=== PATIENT | female | born 1950 | race Caucasian/White ===

== ENCOUNTER → 2017-01-10 | Outpatient (CLI) | payer MEDICARE, OTHER | END | disposition home or self-care (01) | LOC: YCFC.O 08:51 | PROVIDERS: ATTEND Nurse Practitioner Family | DX: I63.9 Cerebral infarction, unspecified (principal); E61.1 Iron deficiency; I10 Essential (primary) hypertension; E78.5 Hyperlipidemia, unspecified; E11.9 Type 2 diabetes mellitus without complications ==

== ENCOUNTER → 2017-02-27 | Outpatient (CLI) | payer OTHER ==
--- NOTE | 2017-02-27 16:29 | RAD ---
History: Cough, COPD. Chest x-ray: Single view is compared with 02/2016 study. Cardiomediastinal contour is within normal limits with ectatic thoracic aorta. Patchy left lower lung atelectasis or scarring is grossly stable. No definite airspace disease or pleural effusion. Mild diffuse osteopenia. IMPRESSION: Stable study since 02/2016. Electronically signed by: Sandhya Dailey MD 02/27/2017 4:28 PM CDT
== END ==
LOC: LAB.O 09:20
PROVIDERS: ATTEND Nurse Practitioner Family
DX: R05 Cough (principal); R09.89 Other specified symptoms and signs involving the circulatory and respiratory systems

== ENCOUNTER 2017-12-05 09:47 | Emergency (ER) | payer OTHER ==
[2017-12-05] MEDS ORDERED: IPRATROPIUM/ALBUTEROL 3 ML VIAL NEB ONE ×2 (09:56→10:17)
[2017-12-05] MEDS ORDERED: methylPREDNISolone SODIUM SUC 125 MG/2 ML VIAL IV ONE (10:38)
--- NOTE | 2017-12-05 10:39 | ED.PDOC ---
History of Present Illness - General Chief Complaint: Respiratory Problem Stated Complaint: Dyspnea Time Seen by Provider: 12/05/17 10:07 Source: patient, family Exam Limitations: no limitations Additional Information: Anila Scales 67 y/o female with history of COPD was sent by her primary Md to [facility] with sob,and low oxygen saturation since yesterday.Denies fever ,chills ,chest pain. - History of Present Illness Timing/Duration: yesterday Cough Quality/Degree: moderate, dry cough Possible Cause: occasional episodes Improving Factors: nothing Worsening Factors: nothing Associated Symptoms: sinus infection, other - see hpi Allergies/Adverse Reactions: Allergies Aspirin [From ASA Compound] Allergy (Verified 03/04/16 22:32) Home Medications: Ambulatory Orders Clopidogrel Bisulfate [Plavix] 75 mg PO QD 03/04/16 Human Insulin Aspart [Novolog] 0 unit SUBCU 03/04/16 Insulin Detemir [Levemir Pen] 24 unit SUBCU DAILY 03/04/16 Lisinopril 10 mg PO DAILY 03/04/16 Pravastatin Sodium [Pravachol] 40 mg PO BEDTIME 03/04/16 Verapamil HCl 80 mg PO BEDTIME 03/04/16 Albuterol Sulfate [Proair Hfa] 2 puff INH Q6H PRN 03/05/16 Budesonide-Formoterol Fumarate [Symbicort 160-4.5 Mcg/Act] 2 aer IN BID Review of Systems - Review of Systems Constitutional: States: no symptoms reported EENTM: States: no symptoms reported Respiratory: States: see HPI Cardiology: States: no symptoms reported Gastrointestinal/Abdominal: States: no symptoms reported Genitourinary: States: no symptoms reported Musculoskeletal: States: no symptoms reported Skin: States: no symptoms reported All other Systems: Reviewed and Negative, No Change from Baseline Past Medical History (General) - Patient Medical History Hx Seizures: No Hx Stroke: Yes Hx Dementia: No Hx Asthma: Yes Hx of COPD: Yes Hx Cardiac Disorders: Yes Hx Congestive Heart Failure: Yes Hx Pacemaker: No Hx Hypertension: No Hx Thyroid Disease: No Hx Diabetes: Yes Hx Gastroesophageal Reflux: Yes Hx Renal Disease: No Hx Cancer: No Hx of HIV: No Hx Hepatitis C: No Hx MRSA: No Surgical History: no surgical history - Vaccination History Hx Tetanus, Diphtheria Vaccination: No Hx Influenza Vaccination: No Hx Pneumococcal Vaccination: No - Social History Hx Tobacco Use: Yes Hx Chewing Tobacco Use: No Hx Alcohol Use: No Hx Substance Use: No Hx Substance Use Treatment: No Hx Depression: No Hx Physical Abuse: No Hx Emotional Abuse: No Hx Suspected Abuse: No - Activities of Daily Living Patient Lives Alone: No - family Grooming Ability: Independent Eating (Feeding) Ability: Independent Toileting Ability: Independent - Female History Patient : No Family Medical History - Family History Mother Living Status: Hx Family Hypertension: Yes Hx Family Stroke: Yes Hx Family Diabetes: Yes Brother Living Status: Still Living Hx Family Diabetes: Yes Father Living Status: Hx Family Hypertension: Yes Hx Family Cancer: Yes Physical Exam - Physical Exam General Appearance: Alert, Anxious, No apparent distress Eye Exam: bilateral normal ENT Exam: normal ENT inspection, hearing grossly normal, pharynx normal Neck: non-tender, supple, trachea midline Respiratory: chest non-tender, no respiratory distress, no accessory muscle use , rhonchi, other - [id number] Cardiovascular/Chest: normal peripheral pulses, regular rate, rhythm, no murmur Gastrointestinal/Abdominal: normal bowel sounds, non tender, soft, no organomegaly Extremity: pedal edema - right leg>left Neurologic: alert, oriented x 3 Skin Exam: normal color, warm/dry Progress - Progress Progress: 12/05/17 10:37 Last Vital Signs Temp 97.1 F L 12/05/17 10:02 Pulse 94 H 12/05/17 10:15 Resp 20 12/05/17 10:15 BP 139/70 12/05/17 10:02 Pulse Ox 98 12/05/17 10:15 - Results/Orders Results/Orders: Laboratory Tests 12/05/17 12/05/17 12/05/17 10:07 10:47 10:47 WBC 19.5 H RBC 5.34 Hgb 16.2 H Hct 49.0 H MCV 91.7 MCH 30.3 MCHC 33.1 RDW 13.4 Plt Count 330 MPV 8.7 Absolute Neuts (auto) 15.30 H Absolute Lymphs (auto) 2.70 Absolute Monos (auto) 1.20 H Absolute Eos (auto) 0.20 Absolute Basos (auto) 0.10 Neutrophils % 78.8 H Lymphocytes % 13.6 L Monocytes % 6.0 Eosinophils % 1.2 Basophils % 0.4 D-Dimer, Quantitative 1913 H* Sodium 134 L Potassium 4.2 Chloride 97 L Carbon Dioxide 21 Anion Gap 20.2 H BUN 11 Creatinine 1.03 BUN/Creatinine Ratio 10.7 Random Glucose 513 H* Serum Osmolality 290.7 Calcium 9.5 Total Bilirubin 1.0 AST 22 ALT 21 Alkaline Phosphatase 107 Troponin I B-Natriuretic Peptide Serum Total Protein 8.9 H Albumin 3.8 Globulin 5.1 H Albumin/Globulin Ratio 0.7 L Urine Color Urine Appearance Urine pH Ur Specific [place] Urine Protein Urine Glucose (UA) Urine Ketones Urine Blood Urine Nitrite Urine Bilirubin Urine Urobilinogen Ur Leukocyte Esterase Urine RBC Urine WBC Ur Epithelial Cells Urine Bacteria Urine Yeast 12/05/17 12/05/17 12/05/17 10:47 10:47 12:40 WBC RBC Hgb Hct MCV MCH MCHC RDW Plt Count MPV Absolute Neuts (auto) Absolute Lymphs (auto) Absolute Monos (auto) Absolute Eos (auto) Absolute Basos (auto) Neutrophils % Lymphocytes % Monocytes % Eosinophils % Basophils % D-Dimer, Quantitative Sodium Potassium Chloride Carbon Dioxide Anion Gap BUN Creatinine BUN/Creatinine Ratio Random Glucose Serum Osmolality Calcium Total Bilirubin AST ALT Alkaline Phosphatase Troponin I < 0.02 B-Natriuretic Peptide 63.6 Serum Total Protein Albumin Globulin Albumin/Globulin Ratio Urine Color Yellow Urine Appearance Sl cloudy Urine pH 5.0 Ur Specific [place] 1.010 Urine Protein Negative Urine Glucose (UA) 500 H Urine Ketones Negative Urine Blood Trace-intact H Urine Nitrite Negative Urine Bilirubin Negative Urine Urobilinogen 0.2 Ur Leukocyte Esterase Small H Urine RBC 5-10 H Urine WBC >100 H Ur Epithelial Cells 3-5 Urine Bacteria 2+ H Urine Yeast Rare Venous Ultrasound-righ leg dvt - EKG/XRAY/CT EKG: Sinus, Tachy, RBBB Comments: Hear [id number];LAFB XRAY: chest - no acute abnormality CT Ordered: Yes - bilateral pulmonary embolus Departure - Departure Clinical Impression: Acute pulmonary embolus Qualifiers: Pulmonary embolism type: saddle Acute cor pulmonale presence: without acute cor pulmonale Qualified Code(s): I26.92 - Saddle embolus of pulmonary artery without acute cor pulmonale Dvt femoral (deep venous thrombosis) Qualifiers: Chronicity: acute Laterality: right Qualified Code(s): I82.411 - Acute embolism and thrombosis of right femoral vein Dyspnea Qualifiers: Dyspnea type: shortness of breath Qualified Code(s): R06.02 - Shortness of breath Diabetes Qualifiers: Diabetes mellitus type: type 2 Diabetes mellitus complication status: with unspecified complications Diabetes mellitus halfway insulin use: with halfway use Qualified Code(s): E11.8 - Type 2 diabetes mellitus with unspecified complications COPD (chronic obstructive pulmonary disease) Qualifiers: COPD type: unspecified COPD Qualified Code(s): J44.9 - Chronic obstructive pulmonary disease, unspecified Urinary tract infection Qualifiers: Urinary tract infection type: site unspecified Hematuria presence: without hematuria Qualified Code(s): N39.0 - Urinary tract infection, site not specified Time of Disposition: 13:50 Disposition: Transfer to Hospital Condition: Fair Departure Forms: ED Discharge - Pt. Copy, Patient Portal Self Enrollment Referrals: Ashley Mulligan, BAFFLE INSTALLER [Primary Care Provider] - 1-2 Weeks Home Medications: Ambulatory Orders Clopidogrel Bisulfate [Plavix] 75 mg PO QD 03/04/16 Human Insulin Aspart [Novolog] 0 unit SUBCU 03/04/16 Insulin Detemir [Levemir Pen] 24 unit SUBCU DAILY 03/04/16 Lisinopril 10 mg PO DAILY 03/04/16 Pravastatin Sodium [Pravachol] 40 mg PO BEDTIME 03/04/16 Verapamil HCl 80 mg PO BEDTIME 03/04/16 Albuterol Sulfate [Proair Hfa] 2 puff INH Q6H PRN 03/05/16 Budesonide-Formoterol Fumarate [Symbicort 160-4.5 Mcg/Act] 2 aer IN BID Transfer to Outside Facility - Transfer Information Accepting Provider:: [facility] Reason for Transfer: ICU - D/W Dr. Junior -Hospitalist
--- NOTE | 2017-12-05 10:53 | RAD ---
EXAM DESCRIPTION: Chest,2 Views CLINICAL HISTORY: shortness of breath COMPARISON: February 27, 2017 TECHNIQUE: PA/lateral FINDINGS: The lungs are well expanded and clear. No infiltrates or effusions or masses are noted. Slightly coarse basilar markings are little changed from prior study without definite infiltrate. Upper normal heart size with normal vascularity. The kena and mediastinum demonstrate normal contours. The bony spine and chest wall is normal for age in appearance. IMPRESSION: No acute cardiopulmonary disease. Electronically signed by: Jhonatan Benson MD 12/05/2017 10:52 AM [facility]
[2017-12-05] MEDS ORDERED: BUMETANIDE 0.25 MG/ML VIAL IV ONE (10:57)
[2017-12-05] MEDS ORDERED: INSULIN, REG.(HUMAN) 100 U/ML VIAL SUBCU ONE (11:53)
--- NOTE | 2017-12-05 12:25 | US ---
EXAM DESCRIPTION: Venous,Lower Extremity RT: ULTRASOUND. CLINICAL HISTORY: pain /swelling right leg COMPARISON: CTA chest and chest radiograph on this visit. TECHNIQUE: Two -dimensional and doppler sonographic evaluation of the deep venous system of the right lower extremity. FINDINGS: Doppler evaluation shows echogenic thrombus in the right common femoral vein, femoral vein, popliteal vein. Echogenic thrombus partially occluding the right peroneal vein. There is diminished or absent color flow in these veins and diminished or absent venous waveforms. The veins are not compressible with the transducer. Doppler evaluation shows normal color flow and normal phasicity and augmentation of the right posterior tibial vein. There is also normal occlusion with transducer pressure. Two-dimensional survey showed no echogenic thrombus within the vein. IMPRESSION: 1. Duplex ultrasound evaluation of the right lower extremity deep venous system showing extensive thrombosis from the right common femoral vein into the right peroneal vein. 2. No thrombus in the right posterior tibial vein. 3. The correctional captain notified the emergency medicine referring physician of these findings upon completion of the examination at approximately 1150 hours on December 05, 2017. Electronically signed by: Wilber Ruiz MD 12/05/2017 12:24 PM PROGRAM PLANNER
--- NOTE | 2017-12-05 13:05 | CT ---
EXAM DESCRIPTION: CTA Chest: Computed tomography. CLINICAL HISTORY: elevated d dimer/low sao2 COMPARISON: EXAM DESCRIPTION: CTA Chest: Computed Tomography. CLINICAL HISTORY: elevated d dimer/low sao2 COMPARISON: Duplex ultrasound evaluation of the deep venous system of the right lower extremity. TECHNIQUE: Spiral-axial scans at 0.5 mm intervals through the pulmonary arteries and chest after bolus infusion of IV contrast. Coronal and sagittal 2.0 Mm reconstructions. 5.0 mm PE oblique 3-D reformatted images. Volume rendering imaging craniocaudal and transverse axes. No adverse reactions. This exam was performed according to our departmental CT dose-optimization program which includes automated exposure control, adjustment of the mA and/or kV according to patient size and/or use of iterative reconstruction technique; to reduce radiation dose to as low as reasonably achievable (ALARA). FINDINGS: A large saddle embolus is visualized in the right pulmonary artery which extends into the right upper lobe pulmonary artery and some segmental branches. Also extending into the right middle lobe pulmonary artery and right lower lobe pulmonary artery and segmental arteries. Thrombus also located on the bifurcation of the main pulmonary artery. Saddle embolus involving the left upper lobe and extending into the left lower lobe pulmonary artery branch. No filling defects in the lingular branches. Although the left lower lobe subsegmental branches are normally opacified. Bilateral posterior dependent atelectasis in the lower lobes. No pulmonary edema. Focal lung nodule versus pleural thickening mean diameter 10 mm in the anterior cardiophrenic recess on the left (series 2, image 49). Second soft tissue nodule in the inferior lingula mean diameter 7.5 mm mostly smooth borders (image 59). 2.5 mm soft tissue subpleural nodule lateral right middle lobe at the same level. Scarring in the inferior lingula. No pleural effusion or pneumothorax bilaterally. Thoracic aortic calcifications also involving the proximal brachiocephalic vessels. Small nodes in the mediastinum but no large soft tissue masses. No axillary adenopathy bilaterally. Minimal enhancement of the thyroid gland. Minimal spondylosis several levels of the thoracic spine. Fatty infiltration of the liver. Normal enhancement and size of the adrenal glands and spleen. Moderate size gastric hiatal hernia. Atherosclerotic calcification and intimal thickening of the abdominal aorta. Also extensive calcification of the ostia of the celiac axis, left renal artery and SMA. No subdiaphragmatic free fluid in the included peritoneal space. IMPRESSION: 1. Extensive bilateral embolic clots bilateral pulmonary arteries and most of the lobe bar branches. Some of the emboli extend into segmental branches bilaterally. No pulmonary edema. 2. Bilateral soft tissue nodules in the lung parenchyma. Largest has a mean diameter of 10 mm. According to [facility] Best Practice guidelines, utilizing 2017 Fleischner Society multiple pulmonary nodule recommendations, consider follow-up chest CT scan in 3-6 month interval. Please see below.* 3. Fatty infiltration of the liver. Significant atherosclerotic calcification of the proximal abdominal aorta and ostia of major vessels originating from the aorta. Moderate size gastric hernia. Consider CTA abdominal pelvis and lower extremities if patient symptomatic for abdominal pelvic ischemia or PVD. *2017 Fleischner Society Recommendations for Multiple Solid Lung Nodules Follow-Up base on size (average of long- and short-axis diameters). Use most suspicious nodule for followup. Nodule Size <6 mm Low-Risk Patient: No routine follow-up Nodule Size <6 mm High-Risk Patient: Optional CT at 12 months Nodule Size 6-8 mm Low-Risk Patient: CT at 3-[address] at 18-24 months Nodule Size 6-8 mm High-Risk Patient: CT at 3-6 months then at 18-24 months Nodule Size (mm) >8 Low-Risk Patient: CT at 3-6 months, then consider CT at 18-24 months Nodule Size (mm) >8 High-Risk Patient: CT at 3-6 months, then at 18-24 months CRITICAL COMMUNICATION: The critical value was discussed directly by phone with Dr. Josh Stevenson, at approximately 1235 hours, on December 05, 2017. Electronically signed by: Wilber Ruiz MD 12/05/2017 1:04 PM [facility]
[2017-12-05] MEDS ORDERED: ENOXAPARIN SODIUM 100 MG/ML SYG SUBCU ONE (13:09)
[2017-12-05] MEDS ORDERED: MEROPENEM 500 MG in SODIUM CHL 0.9% 50ML MIN-BAG+ 50 ML IVPB ONE (13:37)
[2017-12-05] MEDS ORDERED: MEROPENEM 500 MG VIAL IVPB ONE (15:28)
[2017-12-05] MEDS ORDERED: SODIUM CHL 0.9% 50ML MIN-BAG+ 50 ML IVPB ONE (15:29)
[2017-12-05 15:45] VITALS: BP 132/85; TEMP 97.5; O2SAT 97
== END 2017-12-05 15:45 | disposition short-term general hospital (02) ==
LOC: ER 09:47
DX: I26.92 Saddle embolus of pulmonary artery without acute cor pulmonale (principal); I82.411 Acute embolism and thrombosis of right femoral vein; J44.9 Chronic obstructive pulmonary disease, unspecified; N39.0 Urinary tract infection, site not specified; E11.8 Type 2 diabetes mellitus with unspecified complications; I45.10 Unspecified right bundle-branch block; I50.9 Heart failure, unspecified; K21.9 Gastro-esophageal reflux disease without esophagitis; Z79.4 Long term (current) use of insulin; Z79.02 Long term (current) use of antithrombotics/antiplatelets; Z88.6 Allergy status to analgesic agent
CPT/HCPCS: 36415; 71046; 71275; 80053; 81001; 83880; 84484; 85025; 85379; 87070; 87086; 93005; 93971; 94640; J1650; J2185; J2930; J3490; J7050; J7620

== ENCOUNTER → 2019-01-25 | Outpatient (CLI) | payer OTHER | LOC: YCFC.O 11:51 | PROVIDERS: ATTEND Nurse Practitioner Family | DX: I10 Essential (primary) hypertension (principal); E78.2 Mixed hyperlipidemia; E11.65 Type 2 diabetes mellitus with hyperglycemia ==

== ENCOUNTER → 2019-04-30 | Outpatient (CLI) | payer OTHER | LOC: YCHH 12:57 | PROVIDERS: ATTEND Family Medicine | DX: E11.9 Type 2 diabetes mellitus without complications (principal) ==

== ENCOUNTER 2020-01-13 22:28 | Inpatient (IN) | payer MEDICARE ==
[2020-01-13] MEDS ORDERED: methylPREDNISolone SODIUM SUC 125 MG/2 ML VIAL IV ONE (22:32)
[2020-01-13] MEDS ORDERED: IPRATROPIUM/ALBUTEROL 3 ML VIAL NEB ONE (22:33)
[2020-01-13] MEDS ORDERED: SODIUM CHLORIDE 0.9% NEB 3 ML VIAL ONE (22:45)
--- NOTE | 2020-01-13 23:18 | RAD ---
EXAM DESCRIPTION: XR Chest,1 View CLINICAL HISTORY: cough, shortness of breath TECHNIQUE: Single frontal view of the chest is submitted. COMPARISON: 12/05/2017 FINDINGS: Heart: The cardiothoracic silhouette is within normal limits. Lungs: No focal consolidation. Mediastinum: Thoracic aortic atherosclerosis. Pleura: No appreciable effusion. No pneumothorax. Bones: Multilevel spondylosis. No acute fracture. Upper abdomen: Unremarkable IMPRESSION: No acute disease. Electronically signed by: Paulie Winn MD 01/13/2020 11:16 PM [facility]
[2020-01-13] MEDS ORDERED: AZITHROMYCIN 250 MG TAB PO ONE (23:39)
[2020-01-13] MEDS ORDERED: cefTRIAXone SODIUM 1 GM in SODIUM CHL 0.9% 50ML MIN-BAG+ 50 ML IVPB ONE (23:39)
[2020-01-13] MEDS ORDERED: OSELTAMIVIR 75 MG CAP PO ONE (23:39)
--- NOTE | 2020-01-13 23:42 | ED.PDOC ---
History of Present Illness - General Chief Complaint: Respiratory Problem Stated Complaint: increased shortness of breath x1 week Time Seen by Provider: 01/13/20 22:31 Additional Information: The patient is a 69 year old with past history of COPD who presents with respiratory distress. History is obtained from the patient's family as she is unable to provide to to distress. They report one week of worsening URI symptoms associated with cough and worsening wheezing. She has been using her nebulizer at home with minimal relief. No recent travel or known sick contacts. No other complaints at this time. - History of Present Illness Allergies/Adverse Reactions: Allergies Aspirin [From ASA Compound] Allergy (Verified 01/13/20 22:33) Home Medications: Ambulatory Orders Clopidogrel Bisulfate [Plavix] 75 mg PO QD 03/04/16 Human Insulin Aspart [Novolog] 0 unit SUBCU AC 03/04/16 Insulin Detemir [Levemir Pen] 55 unit SUBCU DAILY 03/04/16 Lisinopril 10 mg PO DAILY 03/04/16 Albuterol Sulfate [Proair Hfa] 2 puff INH Q6H PRN 03/05/16 Budesonide-Formoterol Fumarate [Symbicort 160-4.5 Mcg/Act] 2 aer IN BID 03/05/16 Review of Systems - Review of Systems Unable to Obtain Due To: clinical condition - respiratory distress Past Medical History (General) - Patient Medical History Hx Seizures: No Hx Stroke: Yes Hx Dementia: No Hx Asthma: Yes Hx of COPD: Yes Hx Cardiac Disorders: Yes Hx Congestive Heart Failure: Yes Hx Pacemaker: No Hx Hypertension: No Hx Thyroid Disease: No Hx Diabetes: Yes Hx Gastroesophageal Reflux: Yes Hx Renal Disease: No Hx Cancer: No Hx of HIV: No Hx Hepatitis C: No Hx MRSA: No Surgical History: no surgical history - Vaccination History Hx Tetanus, Diphtheria Vaccination: No Hx Influenza Vaccination: No Hx Pneumococcal Vaccination: No - Social History Hx Tobacco Use: Yes Hx Chewing Tobacco Use: No Hx Alcohol Use: No Hx Substance Use: No Hx Substance Use Treatment: No Hx Depression: No Hx Physical Abuse: No Hx Emotional Abuse: No Hx Suspected Abuse: No - Female History Patient : No Family Medical History - Family History Mother Living Status: Hx Family Hypertension: Yes Hx Family Stroke: Yes Hx Family Diabetes: Yes Brother Living Status: Still Living Hx Family Diabetes: Yes Father Living Status: Hx Family Hypertension: Yes Hx Family Cancer: Yes Physical Exam - Physical Exam General Appearance: Anxious, Obvious distress Eyes, Ears, Nose, Throat Exam: normal ENT inspection Neck: non-tender, full range of motion Respiratory: respiratory distress, decreased breath sounds, accessory muscle use, wheezing - expiratory Cardiovascular/Chest: regular rate, rhythm, tachycardia Gastrointestinal/Abdominal: non tender, soft Rectal Exam: deferred Extremity: normal range of motion, non-tender, normal inspection, no pedal edema Neurologic: no motor/sensory deficits, alert Skin Exam: normal color, warm/dry Progress - Progress Progress: 01/13/20 23:42 Patient presents with respiratory distress, wheezing. Workup as below. Started on steroids, nebs, nasal canula for COPD with marked improvement. There is really minimal CO2 retention on ABG. She tested positive for flu, started on tamiflu. She was given rocephin/azithromycin for COPD exacerbation and possible underlying infection. After nebs she remained moderately tachypneic with wheezing, will admit for additional treatments. Discussed with LENS GENERATING MACHINE TENDER Danielle Sheffield, will admit for COPD exacerbation, flu. Patient and family are agreeable to this plan of care. - Results/Orders Results/Orders: 01/13/20 22:34 ABG [Arterial Blood Gas] Stat 01/13/20 22:45 EKG STAT 01/13/20 23:39 cefTRIAXone SODIUM [Rocephin] 1 gm Sodium Chl 0.9% 50Ml Min-Bag+ [NS 50ml MINI-BAG+] 50 ml IVPB ONCE Laboratory Results - last 24 hr 01/13/20 01/13/20 01/13/20 22:45 22:45 22:45 WBC 9.3 RBC 5.06 Hgb 15.0 Hct 45.3 MCV 89.6 MCH 29.6 MCHC 33.0 RDW 14.5 Plt Count 295 MPV 8.4 Absolute Neuts (auto) Not Reportable Absolute Lymphs (auto) Not Reportable Absolute Monos (auto) Not Reportable Absolute Eos (auto) Not Reportable Neutrophils % Not Reportable Neutrophils % (Manual) 68.0 Lymphocytes % Not Reportable Lymphocytes % (Manual) 12.0 Monocytes % Not Reportable Monocytes % (Manual) 13.0 Eosinophils % Not Reportable Basophils % Not Reportable Band Neutrophils 3.0 H Metamyelocytes 3.0 H Myelocytes 1.0 H Platelet Estimate Normal Normal RBC Morphology Normal rbc morph Sodium 137 Potassium 4.4 Chloride 105 Carbon Dioxide 24 Anion Gap 12.4 BUN 18 Creatinine 1.14 BUN/Creatinine Ratio 15.8 Random Glucose 227 H Serum Osmolality 282.9 Lactic Acid Calcium 9.3 Troponin I 0.03 B-Natriuretic Peptide 119.0 H 01/13/20 22:45 WBC RBC Hgb Hct MCV MCH MCHC RDW Plt Count MPV Absolute Neuts (auto) Absolute Lymphs (auto) Absolute Monos (auto) Absolute Eos (auto) Neutrophils % Neutrophils % (Manual) Lymphocytes % Lymphocytes % (Manual) Monocytes % Monocytes % (Manual) Eosinophils % Basophils % Band Neutrophils Metamyelocytes Myelocytes Platelet Estimate Normal RBC Morphology Sodium Potassium Chloride Carbon Dioxide Anion Gap BUN Creatinine BUN/Creatinine Ratio Random Glucose Serum Osmolality Lactic Acid 2.2 Calcium Troponin I B-Natriuretic Peptide - EKG/XRAY/CT Comments: 2256 sinus tachycardia, right BBB, no STEMI Xray Comments: COPD, no infiltrate Departure - Departure Clinical Impression: COPD exacerbation, Influenza A Time of Disposition: 23:45 Disposition: Admit Patient Condition: Good Departure Forms: ED Discharge - Pt. Copy, Patient Portal Self Enrollment Referrals: Benita Aceves, DOMONIQUE [Primary Care Provider] - 1-2 Weeks Home Medications: Ambulatory Orders Clopidogrel Bisulfate [Plavix] 75 mg PO QD 03/04/16 Human Insulin Aspart [Novolog] 0 unit SUBCU AC 03/04/16 Insulin Detemir [Levemir Pen] 55 unit SUBCU DAILY 03/04/16 Lisinopril 10 mg PO DAILY 03/04/16 Albuterol Sulfate [Proair Hfa] 2 puff INH Q6H PRN 03/05/16 Budesonide-Formoterol Fumarate [Symbicort 160-4.5 Mcg/Act] 2 aer IN BID 03/05/16 Decision To Admit - Decistion To Admit Decision to Admit Reason: Admit from ER - Copd exacerbation, flu Decision to Admit Date: 01/13/20 Decision to Admit Time: 23:46
[2020-01-13] MEDS ORDERED: SODIUM CHL 0.9% 50ML MIN-BAG+ 50 ML IVPB ONE (23:58)
[2020-01-13] MEDS ORDERED: cefTRIAXone SODIUM 1 GM VIAL ONE (23:58)
[2020-01-14] MEDS ORDERED: SODIUM CHLORIDE 0.9% (FLUSH) 10 ML SYG IV PRN (02:03)
[2020-01-14] MEDS ORDERED: ONDANSETRON INJ 4 MG/2 ML VIAL IV PRN (02:03)
[2020-01-14] MEDS: NYSTATIN POWDER 15GM BTTL TOP SCH ×5 (05:00→21:06)
[2020-01-14] MEDS: ALBUTEROL SULFATE 2.5 MG/3 ML VIAL NEB PRN (05:08)
[2020-01-14] MEDS: IV SET AND CAP CHANGE INJ INJ SCH (05:12)
[2020-01-14] MEDS ORDERED: PANTOPRAZOLE SODIUM IV 40 MG VIAL IV SCH (06:30)
--- NOTE | 2020-01-14 06:59 | RAD ---
Chest one view on 01/14/2020 CLINICAL INDICATION: Pneumonia COMPARISON: 01/13/2020 FINDINGS: Vascular calcification is noted in the aorta. Heart is upper limits normal for size. Mild chronic interstitial changes are noted. Lungs are otherwise clear. Hilar and mediastinal contours are within normal limits. IMPRESSION: No acute disease. Electronically signed by: Jose Alberto Duque 01/14/2020 6:58 AM SUSTAIN[employer] PROJECT MANAGER
[2020-01-14] MEDS: IPRATROPIUM/ALBUTEROL 3 ML VIAL INH SCH ×4 (08:25→20:48)
[2020-01-14] MEDS ORDERED: LISINOPRIL 10 MG TAB ONE (08:40)
[2020-01-14] MEDS ORDERED: cefTRIAXone SODIUM 1 GM VIAL ONE (08:40)
[2020-01-14] MEDS ORDERED: SODIUM CHL 0.9% 50ML MIN-BAG+ 50 ML IVPB ONE (08:41)
[2020-01-14] MEDS: ATORVASTATIN 20 MG TAB PO SCH (08:43)
[2020-01-14] MEDS: SODIUM CHLORIDE 0.9% (FLUSH) 10 ML SYG IV SCH ×2 (08:44→21:07)
[2020-01-14] MEDS: cefTRIAXone SODIUM 1 GM in SODIUM CHL 0.9% 50ML MIN-BAG+ 50 ML IVPB SCH (08:44)
[2020-01-14] MEDS ORDERED: APIXABAN 5 MG TAB PO SCH (09:00)
[2020-01-14] MEDS ORDERED: NON-FORMULARY MEDICATION 1 EA MIS (Lisinopril [Lisinopril] 10 MG) PO SCH (09:00)
[2020-01-14] MEDS ORDERED: SODIUM CHLORIDE 0.9% 250ML 250 ML ONE (10:41)
[2020-01-14] MEDS ORDERED: AZITHROMYCIN IV 500 MG VIAL IVPB ONE (10:41)
[2020-01-14] MEDS: AZITHROMYCIN IV 500 MG in SODIUM CHLORIDE 0.9% 250ML 250 ML IVPB SCH (10:46)
--- NOTE | 2020-01-14 10:52 | HP ---
SUPERVISING PHYSICIAN: Gregory Corral MD CHIEF COMPLAINT: Worsening shortness of breath for a week. HISTORY OF PRESENT ILLNESS: Ms. Scales is a 69-year-old female patient who has a longstanding history of chronic obstructive pulmonary disease. She is a very poor historian, therefore, most of the record was obtained from family and past medical records. The family endorses that over the last week, she has been having worsening upper respiratory symptoms that she associates with a cough, worsening wheezing. She has been utilizing nebulizer at home, increasing without any significant relief. She denied any nausea, vomiting, chest pains. Initial vital signs in the Emergency Room did show that she was afebrile with temperature 96.6, pulse 101, blood pressure 159/80 with respirations of 28 to 30 utilizing accessory muscles with purse-lipped breathing and saturation 88% on room air. After breathing treatments, she was showing increasing saturations of 98% on nasal cannula at 2 liters with significant in work to breathe. Her initial laboratory studies show blood gas within normal limits with pH 7.4, bicarb 23, O2 100, CO2 32 on 3 liters nasal cannula. CBC showed white count 8,200 with a left shift. Chemistries showed initially normal electrolytes, potassium 4.4, calcium 9.3, troponin 0.03, BNP 119. Influenza A and B by PCR did show positive for influenza A, negative for B. Chest x-ray in the Emergency Room per radiologic interpretation showed initially no acute disease. Further review of her records shows that she does have a history of atrial fibrillation and looking at 12-lead that was done in the ER, she was in atrial fibrillation with a heart rate of 122 initially. She was started on IV fluids and antibiotics and now is going to be admitted for treatment of COPD exacerbation with concerns for developing complications from influenza A infection associated with diabetes mellitus, type 2. She is admitted in stable condition. PAST MEDICAL HISTORY: 1. Chronic atrial fibrillation on Eliquis, but not currently on any rate control medication. 2. Diabetes mellitus, type 2. 3. Chronic obstructive pulmonary disease with a component of asthma. 4. History of chronic lumbar disc disease. 5. History of chronic migraines, followed by Dr. Cleaning. PAST SURGICAL HISTORY: No surgeries listed. MEDICATIONS: 1. Symbicort 160-4.5 1 inhaled daily p.r.n. 2. Proventil nebulizers 2.5 mg q.4h. as needed. 3. Levemir 80 units subcutaneously daily. 4. Lisinopril 10 mg daily. 5. ProAir inhaler 2 puffs q.6h. as needed. ALLERGIES: ASPIRIN. FAMILY HISTORY: Noncontributory. SOCIAL HISTORY: The patient lives in [place] and is cared for by family including her son. She has a history of smoking 2 packs a day for greater than 30 years, but stopped in the mid-90s. The family endorses that she is not using alcohol or illicit drugs. REVIEW OF SYSTEMS: Unable to fully obtain due to the patient's condition and poor historian. PHYSICAL EXAMINATION: VITAL SIGNS: Temperature 96.6. Pulse 101 to 122 showing atrial fibrillation on the bedside monitor. Blood pressure 159/80. Respirations anywhere from 28 to 30 and utilizing purse-lipped breathing, accessory muscles and saturation 88% on room air, improving to 98% on nasal cannula at 2 liters after treatments. Admission weight 103 kg. GENERAL: The patient appears to be a little anxious. She is a little tearful, but at time of exam is in no acute obvious distress. HEENT: Tympanic membranes clear bilaterally. Oropharynx is pink, moist without any lesions. NECK: Supple, nontender with full range of motion. No jugular venous distention noted. RESPIRATORY: Lung sounds decreased throughout with some very faint expiratory wheezing. There was some accessory muscle use initially noted, but with breathing treatments, improved. CARDIOVASCULAR: Slightly irregular rate and rhythm showing atrial fibrillation on the bedside monitor with a rate of about 122. No murmurs, gallops, or rubs were audible at time of exam. ABDOMEN: Soft, nontender. Positive bowel sounds. EXTREMITIES: There is no cyanosis, clubbing or edema. NEUROLOGIC: The patient is alert to herself and family members. She was a little anxious. Facial features appeared to be symmetrical with no notable nystagmus. Extraocular movements are within normal limits. Cranial nerves II- XII are grossly intact as tested. SKIN: Warm, pink and dry. LABORATORY: White count 9,300, hemoglobin 15, hematocrit 45.3, platelet count 295,000. Differential did show a left shift with 3% bands. Blood gas analysis was within normal limits with pH 7.4, pO2 39, pCO2 100, bicarb 23.9, base excess -0.7 on 3 liters nasal cannula. Chemistries initially on admission did show electrolytes within normal limits with BUN 18, creatinine 1.14. Blood sugar was elevated at 227. Calcium 9.3. BNP was a little elevated at 119. Troponin normal at 0.03. Urinalysis pending. MICROBIOLOGY: Influenza by PCR for A and B was positive for influenza A, negative for B. RADIOLOGY: Chest x-ray initially in the Emergency Room per radiologic interpretation showed no acute disease. ASSESSMENT: 1. Exacerbation of chronic obstructive pulmonary disease secondary to influenza A. 2. Acute on chronic atrial fibrillation with rapid ventricular response. 3. Diabetes mellitus, type 2. PLAN: We will go ahead and start her on Tamiflu for the influenza A. Given that she has significant COPD, we will start her on azithromycin and Rocephin. The patient apparently is very incontinent and requested a catheter at least the first 24 hours to assess for better I&Os. We will await urinalysis. We will have her on aggressive bronchial hygiene with q.i.d. DuoNeb treatments. We will resume her home medications once those are updated and verified. She will be on sliding scale insulin per protocol. She will be on DVT prophylaxis per protocol with Eliquis. I would anticipate her length of stay to be two to three days. Until the patient can transition to outpatient management, we will continue to monitor and treat as needed. #[id number] MTDD
[2020-01-14] MEDS ORDERED: GLUCAGON INJ 1 MG VIAL SUBCU PRN (11:02)
[2020-01-14] MEDS ORDERED: DEXTROSE 10% 500ML IVPB PRN (11:02)
[2020-01-14] MEDS: INSULIN DETEMIR 100 UNITS/ML PEN SUBCU SCH (11:32)
[2020-01-14] MEDS: OSELTAMIVIR 75 MG CAP PO SCH ×2 (11:32→21:07)
[2020-01-14] MEDS: INSULIN LISPRO 100 UNITS/ML PEN SUBCU SCH ×3 (11:37→21:09)
[2020-01-14] MEDS: ACETAMINOPHEN 325 MG TAB PO PRN (17:09)
[2020-01-14] MEDS: APIXABAN 5 MG TAB PO SCH (21:06)
[2020-01-15] MEDS: PANTOPRAZOLE SODIUM TAB 40 MG PO SCH (05:51)
[2020-01-15] MEDS: IPRATROPIUM/ALBUTEROL 3 ML VIAL INH SCH ×4 (08:40→20:09)
[2020-01-15] MEDS ORDERED: SODIUM CHL 0.9% 50ML MIN-BAG+ 50 ML IVPB ONE (09:40)
[2020-01-15] MEDS ORDERED: cefTRIAXone SODIUM 1 GM VIAL ONE (09:40)
[2020-01-15] MEDS: APIXABAN 5 MG TAB PO SCH ×2 (09:59→20:11)
[2020-01-15] MEDS: ATORVASTATIN 20 MG TAB PO SCH (09:59)
[2020-01-15] MEDS: cefTRIAXone SODIUM 1 GM in SODIUM CHL 0.9% 50ML MIN-BAG+ 50 ML IVPB SCH (09:59)
[2020-01-15] MEDS: OSELTAMIVIR 75 MG CAP PO SCH ×2 (09:59→20:12)
[2020-01-15] MEDS: LISINOPRIL 10 MG TAB PO SCH (09:59)
[2020-01-15] MEDS: NYSTATIN POWDER 15GM BTTL TOP SCH ×4 (10:00→20:11)
[2020-01-15] MEDS: INSULIN DETEMIR 100 UNITS/ML PEN SUBCU SCH (10:00)
[2020-01-15] MEDS: INSULIN LISPRO 100 UNITS/ML PEN SUBCU SCH ×4 (10:01→21:45)
[2020-01-15] MEDS: SODIUM CHLORIDE 0.9% (FLUSH) 10 ML SYG IV SCH ×2 (10:01→20:11)
[2020-01-15] MEDS: ACETAMINOPHEN 325 MG TAB PO PRN (10:05)
[2020-01-15] MEDS ORDERED: SODIUM CHLORIDE 0.9% 250ML 250 ML ONE (11:12)
[2020-01-15] MEDS ORDERED: AZITHROMYCIN IV 500 MG VIAL IVPB ONE (11:12)
[2020-01-15] MEDS: AZITHROMYCIN IV 500 MG in SODIUM CHLORIDE 0.9% 250ML 250 ML IVPB SCH (11:15)
[2020-01-15] MEDS ORDERED: KETOROLAC TROMETHAMINE INJ 30 MG/ML VIAL IM ONE (13:27)
--- NOTE | 2020-01-15 16:14 | PN ---
SUPERVISING PHYSICIAN: Gregory Corral MD DATE: 01/15/20 SUBJECTIVE: The patient is resting comfortably. Still having some general malaise. She is also very tearful and anxious at times. I think this is more related to just not feeling well. She has no further complaints. She has actually been afebrile during admission. OBJECTIVE: VITAL SIGNS: Temperature 98.4, pulse 79, blood pressure 112/60 respirations 16, oxygen saturation 98% on 2 liter nasal cannula. I&Os show positive balance. Weight 103.3 kg. GENERAL: The patient is resting comfortably. She is a little bit emotional and tearful but she is alert and in no obvious distress. CHEST: Lung sounds are improved a little bit from yesterday, no obvious wheezing. HEART: Slightly irregular rate and rhythm without any appreciable murmurs, rubs, or gallops. ABDOMEN: Soft, nontender. Positive bowel sounds. EXTREMITIES: No cyanosis, clubbing or edema. NEUROLOGIC: Alert times three. LABORATORY: Chemistries show normal electrolytes with BUN of 26, creatinine 1.4, blood sugars range between 104 and 213. RADIOLOGY: No additional studies today. ASSESSMENT: 1. Exacerbation of chronic obstructive pulmonary disease secondary to influenza A. 2. Acute on chronic atrial fibrillation with rapid ventricular response. 3. Diabetes mellitus, type 2. PLAN: Will continue with current plan at this point with Tamiflu, aggressive pulmonary hygiene and treatment with antibiotics to include azithromycin and Rocephin. She does remain with the catheter in place, we are closely monitoring I&Os, anticipate discharge and will discontinue that in the morning. She is on Duoneb treatments q.i.d.. Resumed her home medications. She is on DVT prophylaxis with Eliquis. Until we can transition her to outpatient management, we will continue to monitor and treat as needed. #[id number] MTDD
[2020-01-16] MEDS: ALBUTEROL SULFATE 2.5 MG/3 ML VIAL NEB PRN ×2 (00:30→05:04)
[2020-01-16] MEDS: PANTOPRAZOLE SODIUM TAB 40 MG PO SCH (06:00)
[2020-01-16] MEDS ORDERED: SODIUM CHL 0.9% 50ML MIN-BAG+ 50 ML IVPB ONE (07:14)
[2020-01-16] MEDS ORDERED: cefTRIAXone SODIUM 1 GM VIAL ONE (07:15)
[2020-01-16] MEDS: INSULIN LISPRO 100 UNITS/ML PEN SUBCU SCH ×4 (07:19→21:19)
[2020-01-16] MEDS: IPRATROPIUM/ALBUTEROL 3 ML VIAL INH SCH ×4 (08:46→20:21)
[2020-01-16] MEDS: ATORVASTATIN 20 MG TAB PO SCH (08:47)
[2020-01-16] MEDS: LISINOPRIL 10 MG TAB PO SCH (08:47)
[2020-01-16] MEDS: OSELTAMIVIR 75 MG CAP PO SCH ×2 (08:47→20:26)
[2020-01-16] MEDS: cefTRIAXone SODIUM 1 GM in SODIUM CHL 0.9% 50ML MIN-BAG+ 50 ML IVPB SCH (08:47)
[2020-01-16] MEDS: SODIUM CHLORIDE 0.9% (FLUSH) 10 ML SYG IV SCH ×2 (08:47→20:25)
[2020-01-16] MEDS: NYSTATIN POWDER 15GM BTTL TOP SCH ×4 (08:47→20:26)
[2020-01-16] MEDS: APIXABAN 5 MG TAB PO SCH ×2 (08:47→20:26)
[2020-01-16] MEDS: INSULIN DETEMIR 100 UNITS/ML PEN SUBCU SCH (08:48)
[2020-01-16] MEDS ORDERED: AZITHROMYCIN IV 500 MG VIAL IVPB ONE (10:20)
[2020-01-16] MEDS ORDERED: SODIUM CHLORIDE 0.9% 250ML 250 ML ONE (10:20)
[2020-01-16] MEDS: AZITHROMYCIN IV 500 MG in SODIUM CHLORIDE 0.9% 250ML 250 ML IVPB SCH (10:22)
[2020-01-16] MEDS ORDERED: diltiaZEM HCL TAB 30 MG TAB PO SCH ×2 (10:30→12:30)
[2020-01-16] MEDS: METOPROLOL SUCCINATE XL 25 MG TAB PO SCH (13:39)
--- NOTE | 2020-01-16 15:52 | PN ---
SUPERVISING PHYSICIAN: Gregory Corral MD DATE: 01/16/20 SUBJECTIVE: The patient appears to be in no acute distress. She is resting comfortably. She is not very communicative, although she will hold a conversation if you get her started but appears to be at her baseline levels. Again, nurses had discussions with her grandson in regards to discharging to the [facility] and at this point, no one is in agreement to this plan of care. They would rather take the patient home. She does remain afebrile. Mark is in place due to the fact that she is completely incontinent and has some areas of excoriation to her perineum on admission which is getting well. OBJECTIVE: VITAL SIGNS: Temperature 98.2, pulse 79 showing slightly irregular rate and rhythm with just a little tachycardiac ranging from 95 to 102, blood pressure 160/63, respirations 20, oxygen saturation 95% on 2 liter nasal cannula. GENERAL: The patient appears to be resting comfortably. She is alert and still remains quite tearful at time but does not appear to be in any distress. CHEST: Lung sounds are fairly clear throughout. No wheezing or rales, just diminished toward the bases. HEART: Slightly irregular rate and rhythm with atrial fibrillation showing on the monitor with the rate between 95 and 102. ABDOMEN: Obese, soft, nontender. Positive bowel sounds. EXTREMITIES: No edema. NEUROLOGIC: Alert and oriented x3. LABORATORY: Chemistries show normal electrolytes with BUN of 26, creatinine 1.4, blood sugars range between 104 and 213. Blood sugars showing to be stable between 86 and 165. RADIOLOGY: No additional studies today. ASSESSMENT: 1. Exacerbation of chronic obstructive pulmonary disease secondary to influenza A. 2. Influenza infection. 3. Acute on chronic atrial fibrillation with intermittent rapid ventricular response requiring initiation of beta cristian. 4. Diabetes mellitus, type 2, showing to be stable. PLAN: She continues on Tamiflu and aggressive pulmonary hygiene along with azithromycin and Rocephin for continued upper respiratory infection. I think the catheter should remain in place for at least another 24 hours as she is incontinence and has had excoriation since she is showing to be improving. Given that her rate is a little bit elevated and not as controlled as I would like to see and she is not on any rate-controlled medication at this point, I will go ahead and start her on some metoprolol, 25 mg b.i.d. She is on Eliquis for anticoagulation. She remains on Duoneb treatments b.i.d.. Hopefully, we will be able to transition her to outpatient management in the next 24 to 48 hours. Again, the family did visit today with the charge nurse and primary care nurse and have voiced that they are not seeking to place the patient in any kind of snf facility and will take her home. There is also discussion of home health but they are not sure they are open to that as well. I am not too sure that we may need to get an APS case open on it but will await evaluation with Kady, health social work professor, in the morning. Until we can transition her to outpatient management, we will continue to monitor and treat as needed. #[id number] MTDD
[2020-01-17] MEDS: ACETAMINOPHEN 325 MG TAB PO PRN (00:27)
[2020-01-17] MEDS: ALBUTEROL SULFATE 2.5 MG/3 ML VIAL NEB PRN ×2 (00:31→06:00)
[2020-01-17] MEDS: IV SET AND CAP CHANGE INJ INJ SCH (01:25)
[2020-01-17] MEDS: PANTOPRAZOLE SODIUM TAB 40 MG PO SCH (05:44)
[2020-01-17] MEDS: INSULIN LISPRO 100 UNITS/ML PEN SUBCU SCH ×4 (06:50→20:57)
[2020-01-17] MEDS ORDERED: SODIUM CHLORIDE 0.9% 250ML 250 ML ONE (07:01)
[2020-01-17] MEDS ORDERED: SODIUM CHL 0.9% 50ML MIN-BAG+ 50 ML IVPB ONE (07:02)
[2020-01-17] MEDS ORDERED: cefTRIAXone SODIUM 1 GM VIAL ONE (07:02)
[2020-01-17] MEDS ORDERED: AZITHROMYCIN IV 500 MG VIAL IVPB ONE (07:03)
[2020-01-17] MEDS: cefTRIAXone SODIUM 1 GM in SODIUM CHL 0.9% 50ML MIN-BAG+ 50 ML IVPB SCH (07:58)
[2020-01-17] MEDS: ATORVASTATIN 20 MG TAB PO SCH (07:58)
[2020-01-17] MEDS: SODIUM CHLORIDE 0.9% (FLUSH) 10 ML SYG IV SCH ×2 (07:58→20:56)
[2020-01-17] MEDS: OSELTAMIVIR 75 MG CAP PO SCH ×2 (07:58→20:58)
[2020-01-17] MEDS: METOPROLOL SUCCINATE XL 25 MG TAB PO SCH (07:58)
[2020-01-17] MEDS: NYSTATIN POWDER 15GM BTTL TOP SCH ×4 (07:58→20:57)
[2020-01-17] MEDS: LISINOPRIL 10 MG TAB PO SCH (07:58)
[2020-01-17] MEDS: APIXABAN 5 MG TAB PO SCH ×2 (07:58→20:56)
[2020-01-17] MEDS: INSULIN DETEMIR 100 UNITS/ML PEN SUBCU SCH (08:02)
[2020-01-17] MEDS: IPRATROPIUM/ALBUTEROL 3 ML VIAL INH SCH ×4 (08:37→20:05)
[2020-01-17] MEDS: AZITHROMYCIN IV 500 MG in SODIUM CHLORIDE 0.9% 250ML 250 ML IVPB SCH (08:57)
--- NOTE | 2020-01-17 13:26 | PN ---
SUPERVISING PHYSICIAN: Jhonatan Metcalf MD DATE: 01/17/20 SUBJECTIVE: The patient states she is doing fairly well this morning. She is actually much more conversive. We discussed plan of care, removing her Mark and anticipation of hopefully being able to discharge tomorrow once we ensure she is safe at home once discharged. Again, she has refused any placement with home health and intermediate as well as her family and Kady is working on an Adult Protective Services for referral to make sure everything is safe once discharged home. Otherwise, she has been afebrile. No further complaints. OBJECTIVE: VITAL SIGNS: Temperature 97.2. Pulse 87. Blood pressure 134/90. Respirations 20. Saturation 99% on 2 liters nasal cannula. Weight 105.8 kg. I&Os show positive balance of 220. GENERAL: The patient appears to be resting comfortably. She is conversive this morning. She does not appear to be as emotion and is in better spirits. She is alert. CHEST: Lung sounds continue to be clear throughout. No obvious wheezing noted. They are just diminished toward the bases. HEART: Slightly irregular rate and rhythm, but showing a controlled ventricular rate after starting on metoprolol. ABDOMEN: Obese, soft, nontender. Positive bowel sounds. EXTREMITIES: No edema. NEUROLOGIC: Alert and oriented x3. LABORATORY: Blood sugars stable between 83 and 137. RADIOLOGY: No additional studies today. ASSESSMENT: 1. Exacerbation of chronic obstructive pulmonary disease secondary to influenza A. 2. Influenza infection. 3. Acute on chronic atrial fibrillation with intermittent rapid ventricular response requiring initiation of beta cristian. 4. Diabetes mellitus, type 2, stable. PLAN: She will continue on Tamiflu for full treatment course as well as aggressive pulmonary hygiene with antibiotic coverage or Rocephin and azithromycin. Her catheter will be removed today with some bladder training. I did start her on some metoprolol for rate control yesterday which she is tolerating without any complication and showing good control. She does remain on Eliquis for DVT prophylaxis. Kady is working APS consult. She has a physical therapy consult pending this afternoon. Again, hopefully we will be able to discharge home once we determine her home environment is safe. Until then, we will continue to monitor and treat as needed. #[id number] MTDD
[2020-01-18] MEDS: ALBUTEROL SULFATE 2.5 MG/3 ML VIAL NEB PRN (00:13)
[2020-01-18] MEDS: ACETAMINOPHEN 325 MG TAB PO PRN (05:47)
[2020-01-18] MEDS: PANTOPRAZOLE SODIUM TAB 40 MG PO SCH (05:47)
[2020-01-18] MEDS: INSULIN LISPRO 100 UNITS/ML PEN SUBCU SCH (07:39)
[2020-01-18] MEDS: IPRATROPIUM/ALBUTEROL 3 ML VIAL INH SCH (08:32)
[2020-01-18 09:02] VITALS: BP 127/76; TEMP 98.4; O2SAT 96
[2020-01-18] MEDS: APIXABAN 5 MG TAB PO SCH (09:57)
[2020-01-18] MEDS: METOPROLOL SUCCINATE XL 25 MG TAB PO SCH (09:57)
[2020-01-18] MEDS: SODIUM CHLORIDE 0.9% (FLUSH) 10 ML SYG IV SCH (09:57)
[2020-01-18] MEDS: LISINOPRIL 10 MG TAB PO SCH (09:57)
[2020-01-18] MEDS: OSELTAMIVIR 75 MG CAP PO SCH (09:57)
[2020-01-18] MEDS ORDERED: cefTRIAXone SODIUM 1 GM VIAL ONE (09:58)
[2020-01-18] MEDS ORDERED: SODIUM CHL 0.9% 50ML MIN-BAG+ 50 ML IVPB ONE (09:58)
[2020-01-18] MEDS: cefTRIAXone SODIUM 1 GM in SODIUM CHL 0.9% 50ML MIN-BAG+ 50 ML IVPB SCH (09:59)
[2020-01-18] MEDS: NYSTATIN POWDER 15GM BTTL TOP SCH (09:59)
[2020-01-18] MEDS: INSULIN DETEMIR 100 UNITS/ML PEN SUBCU SCH (10:00)
--- NOTE | 2020-01-18 14:00 | DS ---
SUPERVISING PHYSICIAN: Jhonatan Metcalf MD DISCHARGE DIAGNOSIS: 1. Exacerbation of chronic obstructive pulmonary disease secondary to influenza A. 2. Influenza A infection. 3. Acute on chronic atrial fibrillation with intermittent rapid ventricular response, requiring initiation of a beta cristian. 4. Diabetes mellitus, type 2, stable. HISTORY OF PRESENT ILLNESS: This is a 69-year-old female patient who has a longstanding history of chronic obstructive pulmonary disease. She is a poor historian, but her family endorsed that over the previous week to admission, she had been having worsening upper respiratory symptoms that she associated with a cough and worsening wheezing. She had been utilizing nebulizer at home and increasing her dose without any relief. Initial vital signs in the Emergency Room showed that she was afebrile with temperature 96.6, pulse 101, blood pressure 159/80 with respirations of 28 to 30 utilizing accessory muscles with purse-lipped breathing. Saturation 88% on room air. After several breathing treatments, her O2 saturations went up to 98% on nasal cannula at 2 liters. She also had significant work to breathe. Her initial laboratory studies showed blood gas within normal limits with pH 7.4, bicarb 23, O2 100, CO2 32 on 3 liters nasal cannula. CBC showed white count 8,200 with a left shift. Chemistries showed normal electrolytes, potassium 4.4, calcium 9.3, troponin 0.03, BNP 119. Influenza A and B by PCR did show positive for influenza A, negative for B. Chest x-ray showed no acute disease. Further review of her records shows that she does have a history of atrial fibrillation and her 12- lead was done in the ER showing she was in atrial fibrillation with a heart rate of 122. She was started on IV fluids and antibiotics, treated for COPD exacerbation with concerns for developing influenza A infection. There were concerns for her diabetes. She was admitted in stable condition. HOSPITAL COURSE: She was admitted to the hospital and put on Tamiflu. She also started on azithromycin and Rocephin with aggressive pulmonary hygiene. Initially, she did receive a catheter to monitor her I&Os closely and a urinalysis was obtained. Home medications were resumed. Her Eliquis was sufficient for DVT prophylaxis. She continued to feel poorly, but she slowly improved. There were some discussions initially for discharging her to the shelter, but family was not in agreement. They also refused home health and APS referral was initiated. Over the last 24 hours, she has improved greatly. Her Mark catheter was discontinued. She as well as her family refused home health or residential. She was started on a low dose of metoprolol for rate control since she was in atrial fibrillation with her rate in the 120s. She has Eliquis for DVT prophylaxis. She will be discharged in stable condition. LABORATORY: Her CBC was basically unremarkable throughout her stay. Her blood sugars ran between 83 and 213. Her sodium did slightly drop to 132, but today is 138. Potassium is normal at 4.1, chloride 103, BUN 25, creatinine 1.14. All other labs and films have been reviewed via the EMR. DISCHARGE PLAN: The patient will be discharged home in stable condition. She is to resume her previous diet and increase her activity as tolerated. She is to followup with [facility]IZAB[facility] Judd, within 1 to 2 weeks. In addition to her routine home medications, she is to finish her Tamiflu regimen and she is also to add Toprol XL to her daily medications. She is to return to the hospital or followup with [facility], for any problems or complications. DISCHARGE MEDICATIONS: 1. Lisinopril. 2. Levemir. 3. Albuterol. 4. Eliquis. 5. Symbicort. 6. Metoprolol succinate. 7. Tamiflu. #[id number] MTDD
== END 2020-01-18 12:25 | disposition home or self-care (01) | DRG 194 ==
LOC: ER 22:28 → OBSVTOIN 01-14 → MS 01-14
PROVIDERS: ADMIT Nurse Practitioner Family; ATTEND Nurse Practitioner Acute Care
DX: J10.1 Influenza due to other identified influenza virus with other respiratory manifestations (principal); J44.1 Chronic obstructive pulmonary disease with (acute) exacerbation; I48.20 Chronic atrial fibrillation, unspecified; R32 Unspecified urinary incontinence; E11.9 Type 2 diabetes mellitus without complications; M51.36 Other intervertebral disc degeneration, lumbar region; F41.9 Anxiety disorder, unspecified; Z79.01 Long term (current) use of anticoagulants; Z79.51 Long term (current) use of inhaled steroids; Z79.4 Long term (current) use of insulin; Z88.6 Allergy status to analgesic agent; Z87.891 Personal history of nicotine dependence; Z79.899 Other long term (current) drug therapy

== ENCOUNTER 2020-01-26 01:18 | Emergency (ER) | payer MEDICARE ==
--- NOTE | 2020-01-26 01:35 | ED.PDOC ---
History of Present Illness - General Stated Complaint: COUGH, BODY ACHES Time Seen by Provider: 01/26/20 01:31 Source: patient, family Exam Limitations: no limitations - History of Present Illness Comments: 01/14/2020 DX'D AT [facility] ER WITH INFLUENZA AND COPD EXACERBATION, FOR WHICH SHE WAS ADMITTED AND TX WITH TAMIFLU AND ABX. TONIGHT, PT FEELING BODY ACHES AND COUGH. DENIES SOB OR CP. C/O EAR PAINS. Timing/Duration: this evening Cough Quality/Degree: moderate Possible Cause: illness exposure Improving Factors: nothing Worsening Factors: nothing Associated Symptoms: muscle aches Respiratory Risk Factors: exposure to illness Allergies/Adverse Reactions: Allergies Aspirin [From ASA Compound] Allergy (Verified 01/13/20 22:33) Home Medications: Ambulatory Orders Insulin Detemir [Levemir Pen] 80 unit SUBCU DAILY 03/04/16 Lisinopril 10 mg PO DAILY 03/04/16 Albuterol Sulfate [Proair Hfa] 2 puff INH Q6H PRN 03/05/16 Albuterol Sulfate Nebs [Proventil Nebs] 2.5 mg INH Q4HR PRN 01/14/20 Apixaban [Eliquis] 5 mg PO BID 01/14/20 Budes/Formoterol INH 160/4.5 [Symbicort Inhaler 160/4.5] 1 puff INH DAILY PRN 01/14/20 Metoprolol Succinate [Toprol Xl] 25 mg PO DAILY #30 tab.er.24 01/18/20 Oseltamivir Capsule [Tamiflu] 75 mg PO BID #3 cap 01/18/20 Amoxicillin & Pot Clavulanate [Augmentin] 875 mg PO BID #20 tab 01/26/20 Benzonatate Perles [Tessalon Perles] 100 mg PO TID PRN #30 cap 01/26/20 Methylprednisolone [Medrol Dose Mookie] 4 mg PO DAILY #1 tab 01/26/20 Review of Systems - Review of Systems Constitutional: Denies: chills, fever EENTM: States: ear pain. Denies: nose congestion, throat pain Respiratory: States: cough. Denies: short of breath Cardiology: Denies: chest pain, palpitations Gastrointestinal/Abdominal: Denies: abdominal pain, nausea Genitourinary: Denies: dysuria, frequency Musculoskeletal: States: muscle pain. Denies: back pain, neck pain Skin: Denies: lesions, rash Neurological: States: no symptoms reported Endocrine: States: no symptoms reported Hematologic/Lymphatic: States: no symptoms reported All other Systems: Reviewed and Negative Past Medical History (General) - Patient Medical History Hx Seizures: No Hx Stroke: Yes - approximately 2012 Hx Dementia: No Hx Asthma: Yes Hx of COPD: Yes Hx Cardiac Disorders: Yes Hx Congestive Heart Failure: No Hx Pacemaker: No Hx Hypertension: No Hx Thyroid Disease: No Hx Diabetes: Yes Hx Gastroesophageal Reflux: Yes Hx Renal Disease: No Hx Cancer: No Hx of HIV: No Hx Hepatitis C: No Hx MRSA: No - Vaccination History Hx Tetanus, Diphtheria Vaccination: No Hx Influenza Vaccination: No Hx Pneumococcal Vaccination: No - Social History Hx Tobacco Use: Yes Hx Chewing Tobacco Use: No Hx Alcohol Use: No Hx Substance Use: No Hx Substance Use Treatment: No Hx Depression: No Hx Physical Abuse: No Hx Emotional Abuse: No Hx Suspected Abuse: No - Female History Patient : No Family Medical History - Family History Mother Living Status: Hx Family Hypertension: Yes Hx Family Stroke: Yes Hx Family Diabetes: Yes Brother Living Status: Still Living Hx Family Diabetes: Yes Father Living Status: Hx Family Hypertension: Yes Hx Family Cancer: Yes Physical Exam - Physical Exam General Appearance: Alert, No apparent distress, Obese Eye Exam: bilateral normal ENT Exam: normal ENT inspection, hearing grossly normal, pharynx normal, TM red - LEFT SIDE. Neck: full range of motion, supple, lymphadenopathy (R), lymphadenopathy (L) Respiratory: chest non-tender, lungs clear, normal breath sounds, no respiratory distress, no accessory muscle use, other Cardiovascular/Chest: normal peripheral pulses, regular rate, rhythm, no JVD, no murmur Gastrointestinal/Abdominal: normal bowel sounds, non tender, soft Extremity: normal range of motion, normal inspection Neurologic: no motor/sensory deficits, alert, normal mood/affect Skin Exam: normal color, warm/dry Lymphatic: no adenopathy Progress - Progress Progress: 01/26/20 02:16 RAPID FLU NEG. 01/26/20 03:09 CXR NEG. L OTITIS MEDIA, COUGH, MYALGIAS - HAS H/O COPD SO I SUSPECT ONLY A MILD EXACERBATION (LUNGS CTAB, SATS NL), THUS STEROIDS, ABX, TESSALON PRN COUGH. SAFE FOR DC TO HOME W/ DAUGHTER. 01/26/20 03:11 Departure - Departure Clinical Impression: Otitis media, left, Myalgia, Cough, Otalgia, COPD exacerbation Disposition: Discharge to Home or Self Care Condition: Good Instructions: Cough, Adult (DC) Diet: resume usual diet Activity: increase activity as tolerated Referrals: Lupe Dominguez, DISPLAYER [Primary Care Provider] - 1-2 Weeks Prescriptions: Amoxicillin & Pot Clavulanate [Augmentin] 875 mg PO BID #20 tab Benzonatate Perles [Tessalon Perles] 100 mg PO TID PRN #30 cap PRN Reason: Cough Methylprednisolone [Medrol Dose Mookie] 4 mg PO DAILY #1 tab Home Medications: Ambulatory Orders Insulin Detemir [Levemir Pen] 80 unit SUBCU DAILY 03/04/16 Lisinopril 10 mg PO DAILY 03/04/16 Albuterol Sulfate [Proair Hfa] 2 puff INH Q6H PRN 03/05/16 Albuterol Sulfate Nebs [Proventil Nebs] 2.5 mg INH Q4HR PRN 01/14/20 Apixaban [Eliquis] 5 mg PO BID 01/14/20 Budes/Formoterol INH 160/4.5 [Symbicort Inhaler 160/4.5] 1 puff INH DAILY PRN 01/14/20 Metoprolol Succinate [Toprol Xl] 25 mg PO DAILY #30 tab.er.24 01/18/20 Oseltamivir Capsule [Tamiflu] 75 mg PO BID #3 cap 01/18/20 Amoxicillin & Pot Clavulanate [Augmentin] 875 mg PO BID #20 tab 01/26/20 Benzonatate Perles [Tessalon Perles] 100 mg PO TID PRN #30 cap 01/26/20 Methylprednisolone [Medrol Dose Mookie] 4 mg PO DAILY #1 tab 01/26/20
--- NOTE | 2020-01-26 02:47 | RAD ---
EXAM DESCRIPTION: XR Chest,1 View CLINICAL HISTORY: COUGH TECHNIQUE: Single frontal view of the chest is submitted. COMPARISON: 01/14/2020 FINDINGS: Heart: The cardiothoracic silhouette is enlarged, stable, in part accentuated by portable technique. Lungs: Coarsened interstitial markings. No focal consolidation. Mediastinum: Thoracic aortic atherosclerosis. Pleura: No appreciable effusion. No pneumothorax. Bones: Multilevel spondylosis. No acute fracture. Upper abdomen: Unremarkable IMPRESSION: No acute disease. Electronically signed by: Paulie Winn MD 01/26/2020 2:46 AM CDT
[2020-01-26] MEDS ORDERED: BENZONATATE PERLES 100 MG CAP PO ONE (03:08)
[2020-01-26] MEDS ORDERED: cefTRIAXone SODIUM 1 GM VIAL IM ONE (03:08)
[2020-01-26] MEDS ORDERED: methylPREDNISolone ACETATE 80 MG/ML VIAL IM ONE (03:08)
[2020-01-26] MEDS ORDERED: LIDOCAINE 1% 2 ML VIAL INJ ONE (03:15)
[2020-01-26 03:29] VITALS: BP 115/76; TEMP 97.6; O2SAT 95
== END 2020-01-26 03:57 | disposition home or self-care (01) ==
LOC: ER 01:18
DX: J44.1 Chronic obstructive pulmonary disease with (acute) exacerbation (principal); H66.92 Otitis media, unspecified, left ear; R05 Cough; M79.10 Myalgia, unspecified site; I51.9 Heart disease, unspecified; K21.9 Gastro-esophageal reflux disease without esophagitis; E11.9 Type 2 diabetes mellitus without complications; Z86.73 Personal history of transient ischemic attack (TIA), and cerebral infarction without residual deficits; Z87.891 Personal history of nicotine dependence; Z88.6 Allergy status to analgesic agent; Z79.4 Long term (current) use of insulin; Z79.899 Other long term (current) drug therapy; Z79.01 Long term (current) use of anticoagulants
CPT/HCPCS: 71045; 87502; J0696; J1030

== ENCOUNTER 2020-09-17 12:17 | Emergency (ER) | payer MEDICARE ==
[2020-09-17] MEDS ORDERED: IPRATROPIUM/ALBUTEROL 3 ML VIAL NEB ONE (13:01)
[2020-09-17] MEDS ORDERED: APIXABAN 5 MG TAB PO ONE (13:02)
--- NOTE | 2020-09-17 13:16 | ED.PDOC ---
History of Present Illness - General Chief Complaint: General Stated Complaint: SOB and anxiety Time Seen by Provider: 09/17/20 12:56 Source: patient Exam Limitations: no limitations - History of Present Illness Initial Comments: The patient is a 70-year-old female presenting to the emergency room basically in a panic attack secondary to having run out of multiple of her medications. She does have a history of asthma and COPD and has run out largely of those medications as well. Additionally she has run out of her Eliquis and metoprolol. Most importantly it seems that she has run out of her Cymbalta. She apparently still has some atorvastatin. Lungs are actually clear at this time. Vital signs are within normal limits. She is alert and anxious and tearf ul. Apparently she has not been able to get them filled secondary to billing dispute with her primary care doctor. Timing/Duration: 1 week Severity: moderate Improving Factors: nothing Worsening Factors: nothing Associated Symptoms: shortness of breath Allergies/Adverse Reactions: Allergies Aspirin [From ASA Compound] Allergy (Verified 07/12/20 06:05) Home Medications: Ambulatory Orders Albuterol Sulfate Nebs [Proventil Nebs] 2.5 mg INH Q4HR PRN 01/14/20 Apixaban [Eliquis] 5 mg PO BID 01/14/20 Budes/Formoterol INH 160/4.5 [Symbicort Inhaler 160/4.5] 1 puff INH DAILY PRN 01/14/20 Atorvastatin Calcium [Lipitor] 10 mg PO 07/12/20 Insulin Glargine [Toujeo Max Solostar] 10 07/12/20 Review of Systems - Review of Systems Constitutional: States: no symptoms reported EENTM: States: no symptoms reported Respiratory: States: short of breath Cardiology: States: no symptoms reported Gastrointestinal/Abdominal: States: no symptoms reported Genitourinary: States: no symptoms reported Musculoskeletal: States: no symptoms reported Skin: States: no symptoms reported Neurological: States: anxiety Endocrine: States: no symptoms reported All other Systems: No Change from Baseline Past Medical History (General) - Patient Medical History Hx Seizures: No Hx Stroke: Yes - approximately 2012 Hx Dementia: No Hx Asthma: Yes Hx of COPD: Yes Hx Cardiac Disorders: Yes Hx Congestive Heart Failure: No Hx Pacemaker: No Hx Hypertension: No Hx Thyroid Disease: No Hx Diabetes: Yes Hx Gastroesophageal Reflux: Yes Hx Renal Disease: No Hx Cancer: No Hx of HIV: No Hx Hepatitis C: No Hx MRSA: No - Vaccination History Hx Tetanus, Diphtheria Vaccination: No Hx Influenza Vaccination: No Hx Pneumococcal Vaccination: No - Social History Hx Tobacco Use: Yes Hx Chewing Tobacco Use: No Hx Alcohol Use: No Hx Substance Use: No Hx Substance Use Treatment: No Hx Depression: No Hx Physical Abuse: No Hx Emotional Abuse: No Hx Suspected Abuse: No - Female History Patient is a Female of Child Bearing Age (10 -59 yrs old): No Patient : No Family Medical History - Family History Mother Living Status: Hx Family Hypertension: Yes Hx Family Stroke: Yes Hx Family Diabetes: Yes Brother Living Status: Still Living Hx Family Diabetes: Yes Father Living Status: Hx Family Hypertension: Yes Hx Family Cancer: Yes Physical Exam - Physical Exam General Appearance: Alert, Anxious, Other - Tearful Eye Exam: bilateral normal Ears, Nose, Throat: hearing grossly normal, normal pharynx Neck: non-tender, supple Respiratory: lungs clear, normal breath sounds, no respiratory distress, no accessory muscle use Cardiovascular/Chest: normal peripheral pulses, regular rate, rhythm, no edema Peripheral Pulses: radial,right: 2+, radial,left: 2+ Gastrointestinal/Abdominal: non tender - Morbidly obese, soft Rectal Exam: deferred Back Exam: no vertebral tenderness Extremity: normal range of motion, normal capillary refill 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 Rate is 88 bpm. There is an old right bundle branch block. No obvious ST segment or T wave changes indicative of acute ischemia when compared to previous. Mild left axis deviation. Borderline QT interval. - Results/Orders Results/Orders: The patient is a 70-year-old female presented emergency room essentially with a panic attack due to running out of multiple medications. The patient will be written for 2-week prescriptions of her Eliquis, metoprolol, Cymbalta, Proventil, albuterol nebs and budesonide fomoterol inhaler. She needs to follow back up with her primary care doctor to reestablish her routine care. No evidence of acute pathology otherwise on exam today. Vital signs are stable. ER warnings are given for any significant worsening. juan daniel pablo [id number] Departure - Departure Clinical Impression: Panic attack Disposition: Discharge to Home or Self Care Condition: Fair Departure Forms: ED Discharge - Pt. Copy, Patient Portal Self Enrollment Instructions: Anxiety, Adult (DC) Diet: regular diet Activity: increase activity as tolerated Referrals: Benita Aceves NP [Primary Care Provider] - 1-2 Weeks Home Medications: Ambulatory Orders Albuterol Sulfate Nebs [Proventil Nebs] 2.5 mg INH Q4HR PRN 01/14/20 Apixaban [Eliquis] 5 mg PO BID 01/14/20 Budes/Formoterol INH 160/4.5 [Symbicort Inhaler 160/4.5] 1 puff INH DAILY PRN 01/14/20 Atorvastatin Calcium [Lipitor] 10 mg PO 07/12/20 Insulin Glargine [Toujeo Max Solostar] 10 07/12/20 Additional Instructions: The patient is a 70-year-old female presented emergency room essentially with a panic attack due to running out of multiple medications. The patient will be written for 2-week prescriptions of her Eliquis, metoprolol, Cymbalta, Proventil, albuterol nebs and budesonide fomoterol inhaler. She needs to follow back up with her primary care doctor to reestablish her routine care. No evidence of acute pathology otherwise on exam today. Vital signs are stable. ER warnings are given for any significant worsening.
[2020-09-17] MEDS ORDERED: DULoxetine HCL 30 MG CAP PO ONE (13:18)
[2020-09-17 15:19] VITALS: BP 150/80; TEMP 97.1; O2SAT 95
[2020-09-18] MEDS ORDERED: DULoxetine HCL 30 MG CAP PO ONE (13:01)
== END 2020-09-17 14:15 | disposition home or self-care (01) ==
LOC: ER 12:17
DX: F41.0 Panic disorder [episodic paroxysmal anxiety] (principal); I48.91 Unspecified atrial fibrillation; I45.10 Unspecified right bundle-branch block; J44.9 Chronic obstructive pulmonary disease, unspecified; I51.9 Heart disease, unspecified; E11.9 Type 2 diabetes mellitus without complications; K21.9 Gastro-esophageal reflux disease without esophagitis; Z91.14 Patient's other noncompliance with medication regimen; Z86.73 Personal history of transient ischemic attack (TIA), and cerebral infarction without residual deficits; Z79.01 Long term (current) use of anticoagulants; Z79.899 Other long term (current) drug therapy; Z79.4 Long term (current) use of insulin; Z88.6 Allergy status to analgesic agent; Z87.891 Personal history of nicotine dependence
CPT/HCPCS: 93005; 94640; J7620